=== PATIENT | male | born 1980 | race American Indian/Alaskan Native ===

== ENCOUNTER 2016-12-04 20:06 | Emergency (ER) | payer SELFPAY ==
[2016-12-05] MEDS ORDERED: ROCEPHIN IM ONE (02:39)
[2016-12-05] MEDS ORDERED: XYLOCAINE 1% MPF 5 mL INFILTRATI ONE (02:39)
[2016-12-05] MEDS ORDERED: ZITHROMAX PO ONE (02:39)
--- NOTE | 2016-12-05 02:45 | Emergency Department Report ---
ED General Adult HPI - General Chief complaint: Skin Rash Stated complaint: RASH IN GROIN Time Seen by Provider: 12/05/16 02:13 Source: patient Mode of arrival: Ambulatory Limitations: No Limitations - History of Present Illness Initial comments: 36-year-old male with no significant past medical history presents to the hospital complaining of bumps to the head of his penis and mild irritation urination. Patient had unprotected sex 3 days ago. Denies fever or testicular pain Severity scale (0 -10): 0 - Related Data Allergies Allergy/AdvReac Type Severity Reaction Status Date / Time No Known Allergies Allergy Unverified 12/04/16 20:16 ED Review of Systems ROS: Stated complaint: RASH IN GROIN Other details as noted in HPI Comment: All other systems reviewed and negative Other: Constitutional: No fevers chills Eyes: No eye pain visual changes ENT: No ear pain or throat pain Neck: Denies pain Respiratory: Denies cough wheezing shortness of breath Cardiovascular: Denies chest pain, palpitations, syncope GI: Denies abdominal pain, nausea, vomiting, diarrhea : as per hpi Musculoskeletal: Denies back pain Skin: Denies rash, lesions, erythema Neurologic: Denies headache, numbness, weakness Psychiatric: Denies suicidal ideation, hallucinations ED Past Medical Hx - Past Medical History Previous Medical History?: No - Surgical History Past Surgical History?: No - Social History Smoking Status: Current Every Day Smoker Substance Use Type: None ED Physical Exam - General Limitations: No Limitations - Other Other exam information: General: No limitations, patient is alert in no acute distress Head exam: Atraumatic, normocephalic Eyes exam: Normal appearance ENT: Moist mucous membrane, normal oropharynx Neck exam: Normal inspection, full range of motion, no meningismus nontender Respiratory exam: Clear to auscultation bilateral, no wheezes, rales, crackles Cardiovascular: Normal rate and rhythm, normal heart sounds Abdomen: Soft, nondistended, and nontender, with normal bowel sounds, no rebound, or guarding : Circumcised, 1 small bump to the dimas of the glans penis on the left. No ulceration Or tenderness. No penile discharge. No testicular or epididymal tenderness. Back: Normal Inspection, full range of motion, no tenderness Neurologic: Alert, oriented x3, cranial nerves intact, no motor or sensory deficit Psychiatric: normal affect, normal mood Skin: Warm, dry, intact ED Course Vital Signs 12/04/16 12/05/16 20:11 01:37 Temperature 98.3 F 98.1 F Pulse Rate 81 65 Respiratory 18 17 Rate Blood Pressure 136/71 129/86 O2 Sat by Pulse 99 98 Oximetry ED Medical Decision Making - Medical Decision Making Patient has 1 small bump to his penis that doesn't look like an infection. The lesions not consistent with genital warts, herpes, syphilis, ulcer, or cellulitis. Patient was treated empirically for STD since gonorrhea and chlamydia test will be pending. Follow with PMD/urology/health department will be encouraged. - Differential Diagnosis STD, pearly papules, UTI Critical Care Time: No Critical care attestation.: If time is entered above; I have spent that time in minutes in the direct care of this critically ill patient, excluding procedure time. ED Disposition Clinical Impression: Unprotected sex Disposition: - TO HOME OR SELFCARE Is pt being admited?: No Does the pt Need Aspirin: No Condition: Stable Instructions: Sexually Transmitted Diseases (ED) Additional Instructions: You were treated in the ER today for gonorrhea and chlamydia since cultures are pending. Follow-up with the primary care doctor or clinic and/or urologist provided.Your gonorrhea and chlamydia tests are pending and take approximately 3 -4 days result. You may obtain results in medical records with a photo ID. You may also obtain results through the follow-up doctor office via medical record request. Referrals: [facility] [Outside] - 3-5 Days (health department) ROZ SIDDIQI MD [Staff Physician] - 3-5 Days (Urologist) [facility] [Provider Group] - 3-5 Days Time of Disposition: 04:00
[2016-12-05 02:52] LABS: Bilirubin,Urine NEG (Negative); Blood,Urine NEG (Negative); Ketones,Urine NEG (Negative); Leukocyte Esterase,Urine NEG (Negative); Nitrite,Urine NEG (Negative); Protein,Urine <15 mg/dL mg/dL (Negative); Urobilinogen,Urine < 2.0 mg/dL (<2.0); WBC,Urine < 1.0 /HPF (0.0-6.0)
[2016-12-05 04:50] VITALS: BP 107/58
== END 2016-12-05 04:50 | disposition home or self-care (01) ==
LOC: ED 20:06
DX: N50.9 Disorder of male genital organs, unspecified (principal); R21 Rash and other nonspecific skin eruption
CPT/HCPCS: 81001; 87591; 96372; 99283; J0696

== ENCOUNTER 2017-05-26 16:49 | Emergency (ER) | payer SELFPAY ==
[2017-05-26 18:00] LABS: Bacteria,Urine 1+ /HPF (Negative); Bilirubin,Urine NEG (Negative); Blood,Urine NEG (Negative); Color,Urine Yellow (Yellow); Protein,Urine <15 mg/dL mg/dL (Negative); Urobilinogen,Urine < 2.0 mg/dL (<2.0)
--- NOTE | 2017-05-26 20:44 | Emergency Department Report ---
ED Male HPI - General Chief complaint: Urogenital-Male Stated complaint: genital burning Time Seen by Provider: 05/26/17 20:36 Source: patient Mode of arrival: Ambulatory Limitations: No Limitations - History of Present Illness Initial comments: This is a 37-year-old male nontoxic, well nourished in appearance, no acute signs of distress presents to the ED with c/o of penile discharge 1 day. Patient stated he is concerned STD and would like to be treated empirically. Patient stated that he had sexual activity 1 week ago unprotected identifying a piece of this. Patient also stated that there is slight burning sensation with urination. Patient denies any testicular pain, swelling, numbness, tingling, fever, chills, nausea, vomiting headache or stiff neck. Patient denies any back pain. Denies any hematuria, polyuria. Patient denies any allergies or significant past medical history. MD Complaint: penile discharge, dysuria -: days(s) (1) Location: penis Radiation: none Severity: mild Severity scale (0 -10): 3 Quality: burning Consistency: constant Improves with: none Worsens with: urination discharge. denies: swelling, mass, rash, urinary retention, blood in urine, dysuria, fever, nausea/vomiting, incontinence - Related Data Allergies Allergy/AdvReac Type Severity Reaction Status Date / Time No Known Allergies Allergy Verified 05/26/17 17:09 ED Review of Systems ROS: Stated complaint: genital burning Other details as noted in HPI Constitutional: denies: chills, fever Eyes: denies: eye pain, eye discharge, vision change ENT: denies: ear pain, throat pain Respiratory: denies: cough, shortness of breath, wheezing Cardiovascular: denies: chest pain, palpitations Endocrine: no symptoms reported Gastrointestinal: denies: abdominal pain, nausea, diarrhea Genitourinary: dysuria, discharge. denies: urgency Musculoskeletal: denies: back pain, joint swelling, arthralgia Skin: denies: rash, lesions Neurological: denies: headache, weakness, paresthesias Psychiatric: denies: anxiety, depression Hematological/Lymphatic: denies: easy bleeding, easy bruising ED Past Medical Hx - Past Medical History Previous Medical History?: No - Surgical History Past Surgical History?: No - Social History Smoking Status: Never Smoker ED Physical Exam - General Limitations: No Limitations General appearance: alert, in no apparent distress - Head Head exam: Present: atraumatic, normocephalic - Eye Eye exam: Present: normal appearance Pupils: Present: normal accommodation - ENT ENT exam: Present: normal exam, mucous membranes moist - Neck Neck exam: Present: normal inspection, full ROM - Respiratory Respiratory exam: Present: normal lung sounds bilaterally. Absent: respiratory distress, wheezes, rales, rhonchi, stridor - Cardiovascular Cardiovascular Exam: Present: regular rate, normal rhythm, normal heart sounds. Absent: systolic murmur, diastolic murmur, rubs, gallop - GI/Abdominal GI/Abdominal exam: Present: soft, normal bowel sounds. Absent: distended, tenderness, guarding, rebound, rigid, diminished bowel sounds - Rectal Rectal exam: Present: deferred - Extremities Exam Extremities exam: Present: normal inspection, full ROM - Back Exam Back exam: Present: normal inspection, full ROM - Neurological Exam Neurological exam: Present: alert, oriented X3, normal gait - Psychiatric Psychiatric exam: Present: normal affect, normal mood - Skin Skin exam: Present: warm, dry, intact, normal color. Absent: rash ED Course Vital Signs 05/26/17 17:04 Temperature 98.6 F Pulse Rate 99 H Respiratory 75 H Rate Blood Pressure 139/87 O2 Sat by Pulse 99 Oximetry - Reevaluation(s) Reevaluation #1: 05/26/17 20:46 Patient is speaking in full sentences with no signs of distress noted. - Consultations Consultation #1: 05/26/17 20:50 Patient has been consulted with Dr. Darnell about patient history, physical exam, and vitals signs and examined and screened patient and agrees to ED plan of care and discharge plan of care. ED Medical Decision Making - Medical Decision Making This is a 37-year-old male that presents with possible STD. Patient is stable and was examined by me. Patient was spoken with Dr. Darnell and stated due to symptoms and no UTI and negative UA this is a nonmedical emergency and patient was referred to follow up with [facility] and has been referred to follow-up with [facility]. There is no any other symptoms as per patient. Patient is stable. Vital signs are stable. At time of discharge, the patient does not seem toxic or ill in appearance. No acute signs of distress noted. Patient agrees to discharge treatment plan of care. No further questions noted by the patient. Critical care attestation.: If time is entered above; I have spent that time in minutes in the direct care of this critically ill patient, excluding procedure time. ED Disposition Clinical Impression: Possible exposure to STD Disposition: DC-01 TO HOME OR SELFCARE Is pt being admited?: No Does the pt Need Aspirin: No Condition: Stable Instructions: Sexually Transmitted Diseases (ED), Safe Sex (ED) Additional Instructions: Follow-up with a primary care doctor, [facility], [facility] in 3-5 days or if symptoms worsen and continue return to emergency room as soon as possible. Referrals: DERRICK CASTILLO MD [Primary Care Provider] - 3-5 Days [facility] [Referring] - 3-5 Days [facility] [Outside] - 3-5 Days [facility] [Outside] - 3-5 Days Forms: Work/School Release Form(ED)
[2017-05-26 20:47] VITALS: BP 124/73
== END 2017-05-26 21:26 | disposition home or self-care (01) ==
LOC: ED 16:49
DX: Z20.2 Contact with and (suspected) exposure to infections with a predominantly sexual mode of transmission (principal)
CPT/HCPCS: 81001; 87086; 99283

== ENCOUNTER 2018-05-16 19:33 | Emergency (ER) | payer OTHER ==
[2018-05-16 21:29] VITALS: BP 119/72
--- NOTE | 2018-05-16 21:31 | Emergency Department Report ---
Chief Complaint: Headache Stated Complaint: MIGRAINE Time Seen by Provider: 05/16/18 21:26 - HPI History of Present Illness: This is a 38 y.o. male that presents to the ED with a headache. Patients states he was prescribed fioricet by a clinic last week. He had a toothache last week and headache every since. Patient states he just took 2 fioricet tablets while in waiting room. - ROS Review of Systems: right temporal - Exam Vital Signs: Vital Signs 05/16/18 21:28 Temperature 97.7 F Pulse Rate 69 Respiratory 18 Rate Blood Pressure 119/72 O2 Sat by Pulse 99 Oximetry MSE screening note: Focused history and physical exam performed. Due to findings the following was ordered: CT of head Given toradaol and zofran ED Disposition for MSE Condition: Stable
[2018-05-16] MEDS ORDERED: TORADOL IM ONE (21:33)
[2018-05-16] MEDS ORDERED: ZOFRAN ODT PO ONE (21:33)
[2018-05-16] MEDS ORDERED: ZOFRAN ODT ONE (21:36)
[2018-05-16] MEDS ORDERED: TORADOL ONE (21:36)
--- NOTE | 2018-05-16 22:30 | Cat Scan Report ---
PROCEDURE: CT HEAD/BRAIN WO CON TECHNIQUE: Spiral imaging of the brain was obtained without the use of IV contrast material. HISTORY: headache COMPARISONS: None FINDINGS: Brain: Brain density appears normal. No evidence of intracranial hemorrhage. No parenchymal hemorr oscar, mass lesions or mass effect are seen. No abnormal extra-axial fluid collects or masses are see n. Ventricles: Ventricles are normal size and are midline. Bone Windows: No evidence of skull fracture. Paranasal sinuses: Visualized portions appear clear.. Mastoid air cells: Clear. IMPRESSION: Negative exam. This document is electronically signed by Jesús Scales MD., May 16 2018 10:28:30 PM ET
== END 2018-05-16 21:45 | disposition home or self-care (01) ==
LOC: ED 19:33
DX: G43.909 Migraine, unspecified, not intractable, without status migrainosus (principal); Z53.21 Procedure and treatment not carried out due to patient leaving prior to being seen by health care provider
CPT/HCPCS: 70450; J1885; 96372; Q0162

== ENCOUNTER 2018-05-24 22:07 | Emergency (ER) | payer OTHER ==
[2018-05-24] MEDS ORDERED: TYLENOL PO ONE (22:47)
[2018-05-24] MEDS ORDERED: TYLENOL ONE (22:51)
[2018-05-25 03:43] VITALS: BP 111/50
[2018-05-25] MEDS ORDERED: BENADRYL PO ONE (04:53)
[2018-05-25] MEDS ORDERED: DECADRON IM ONE (04:53)
[2018-05-25] MEDS ORDERED: REGLAN PO ONE (04:53)
[2018-05-25] MEDS ORDERED: ULTRAM PO ONE (04:53)
--- NOTE | 2018-05-25 04:57 | Emergency Department Report ---
ED Headache HPI - General Chief Complaint: Headache Stated Complaint: HEAD PAIN Time Seen by Provider: 05/25/18 04:51 - History of Present Illness Initial Comments: Patient 38-year-old male with a history of migraine headaches who presents for headache to the right frontal lobe Same intensity same location as usual headaches patient states this is exacerbation started 2 weeks ago intermittently patient was treated on the had a CT scan at that time which was normal however has not shows any headache medication has not followed up with neurology there are no fevers no chills no visual changes no dizziness no lightheadedness no nausea vomiting no photophobia pain is 7/10 sharp Timing/Duration: 1 week Quality: moderate Head Injury Location: frontal Recent Head Trauma: chronic headaches Associated Symptoms: denies symptoms Allergies/Adverse Reactions: Allergies No Known Allergies Allergy (Verified 05/26/17 17:09) Home Medications: Ambulatory Orders Acetaminophen [Tylenol Extra Strength] 1,000 mg PO QID PRN #60 tablet 05/25/18 Metoclopramide [Reglan] 10 mg PO Q6H PRN #30 tablet 05/25/18 diphenhydrAMINE [Benadryl CAP] 25 mg PO Q6HR PRN #30 capsule 05/25/18 ED Review of Systems ROS: Stated complaint: HEAD PAIN Other details as noted in HPI Constitutional: denies: chills, fever Eyes: denies: eye pain, eye discharge, vision change ENT: denies: ear pain, throat pain Respiratory: denies: cough, shortness of breath, wheezing Cardiovascular: denies: chest pain, palpitations Endocrine: no symptoms reported Gastrointestinal: denies: abdominal pain, nausea, diarrhea Genitourinary: denies: urgency, dysuria Musculoskeletal: denies: back pain, joint swelling, arthralgia Skin: denies: rash, lesions Neurological: headache. denies: weakness, paresthesias Psychiatric: denies: anxiety, depression Hematological/Lymphatic: denies: easy bleeding, easy bruising ED Past Medical Hx - Past Medical History Previous Medical History?: Yes Hx Headaches / Migraines: Yes - Surgical History Past Surgical History?: No - Social History Smoking Status: Current Every Day Smoker Substance Use Type: None - Medications Home Medications: Home Medications Medication Instructions Recorded Confirmed Last Taken Type Acetaminophen [Tylenol Extra 1,000 mg PO QID PRN #60 tablet 05/25/18 Unknown Rx Strength] Metoclopramide [Reglan] 10 mg PO Q6H PRN #30 tablet 05/25/18 Unknown Rx diphenhydrAMINE [Benadryl CAP] 25 mg PO Q6HR PRN #30 capsule 05/25/18 Unknown Rx ED Physical Exam - General Limitations: No Limitations General appearance: alert, in no apparent distress - Head Head exam: Present: atraumatic, normocephalic, normal inspection - Eye Eye exam: Present: normal appearance, PERRL, EOMI. Absent: conjunctival injection Pupils: Present: normal accommodation - ENT ENT exam: Present: normal orophraynx, mucous membranes moist, TM's normal bilaterally, normal external ear exam - Expanded ENT Exam Expanded Ear exam: Present: normal external inspection Mouth exam: Absent: trismus Teeth exam: Present: normal inspection Throat exam: Positive: normal inspection, other (uvula midline no sfider ) - Neck Neck exam: Present: normal inspection, full ROM. Absent: tenderness, meningismus, lymphadenopathy, thyromegaly - Respiratory Respiratory exam: Present: normal lung sounds bilaterally. Absent: respiratory distress, wheezes, stridor, chest wall tenderness - Cardiovascular Cardiovascular Exam: Present: regular rate, normal rhythm, normal heart sounds. Absent: systolic murmur, diastolic murmur, rubs, gallop - GI/Abdominal GI/Abdominal exam: Present: soft, normal bowel sounds. Absent: mass, bruit, hernia - Rectal Rectal exam: Present: deferred, normal inspection - Extremities Exam Extremities exam: Present: normal inspection - Back Exam Back exam: Present: normal inspection, full ROM, tenderness, muscle spasm. Absent: CVA tenderness (R), CVA tenderness (L), paraspinal tenderness, vertebral tenderness, rash noted - Neurological Exam Neurological exam: Present: alert, oriented X3, CN II-XII intact, normal gait, reflexes normal - Psychiatric Psychiatric exam: Present: normal affect, normal mood - Skin Skin exam: Present: warm, dry, intact, normal color. Absent: rash ED Course Vital Signs 05/24/18 05/24/18 05/24/18 22:20 22:43 22:49 Temperature 97.9 F 97.9 F Pulse Rate 83 85 Respiratory 18 16 16 Rate Blood Pressure 117/64 117/64 O2 Sat by Pulse 97 98 Oximetry 05/25/18 03:40 Temperature 97.6 F Pulse Rate 54 L Respiratory 20 Rate Blood Pressure 111/50 O2 Sat by Pulse 99 Oximetry ED Medical Decision Making - Medical Decision Making headache resolve pt state he is read to go , will dc to home with rx for tylenol, reglan, benadryl for headache follow up with [facility] Critical care attestation.: If time is entered above; I have spent that time in minutes in the direct care of this critically ill patient, excluding procedure time. ED Disposition Clinical Impression: Acute nonintractable headache Qualifiers: Headache type: unspecified Qualified Code(s): R51 - Headache Disposition: DC-01 TO HOME OR SELFCARE Is pt being admited?: No Does the pt Need Aspirin: No Condition: Stable Instructions: Acute Headache (ED) Prescriptions: diphenhydrAMINE [Benadryl CAP] 25 mg PO Q6HR PRN #30 capsule PRN Reason: Headache Metoclopramide [Reglan] 10 mg PO Q6H PRN #30 tablet PRN Reason: Headache Acetaminophen [Tylenol Extra Strength] 1,000 mg PO QID PRN #60 tablet PRN Reason: headache Referrals: OMAIRA BORJA MD [Staff Physician] - 3-5 Days [facility] [Outside] - 3-5 Days Forms: Work/School Release Form(ED) Time of Disposition: 05:53
== END 2018-05-25 06:33 | disposition home or self-care (01) ==
LOC: ED 22:07
DX: G43.909 Migraine, unspecified, not intractable, without status migrainosus (principal); F17.200 Nicotine dependence, unspecified, uncomplicated
CPT/HCPCS: 96372

== ENCOUNTER 2018-10-24 19:19 | Emergency (ER) | payer OTHER ==
[2018-10-24 20:02] VITALS: BP 115/72
--- NOTE | 2018-10-24 20:03 | Event Note ---
ED Screening Note Date of service: 10/24/18 Time: 20:01 ED Screening Note: 38 y o ,brandon with a hx of migraine presents to ed cc of worsening migraine since his father just passed This initial assessment/diagnostic orders/clinical plan/treatment(s) is/are subject to change based on patients health status, clinical progression and re- assessment by fellow clinical providers in the ED. Further treatment and workup at subsequent clinical providers discretion. Patient/guardian urged not to elope from the ED as their condition may be serious if not clinically assessed and managed. Initial orders include:
[2018-10-24] MEDS ORDERED: DELTASONE PO ONE (21:09)
[2018-10-24] MEDS ORDERED: TORADOL IM ONE (21:09)
--- NOTE | 2018-10-24 21:10 | Emergency Department Report ---
ED Back Pain/Injury HPI - General Chief Complaint: Headache Stated Complaint: HEAD PROBLEMS Time Seen by Provider: 10/24/18 20:01 Source: patient Limitations: No Limitations - History of Present Illness Initial Comments: 38 YO MALE WHO COMES TO ER WITH A/C [place]. CT SCAN IN APRIL 30. NO N/V/D. NO FEVER/CHILLS. HAS SEEN PCP AND HAS A REFERRAL TO NEURO AND HE IS WAITING FOR A NEURO APPNT. - Related Data Previous Rx's Medication Instructions Recorded Last Taken Type Ibuprofen [Motrin] 800 mg PO Q8HR PRN #30 tablet 10/24/18 Unknown Rx Allergies Allergy/AdvReac Type Severity Reaction Status Date / Time No Known Allergies Allergy Verified 05/26/17 17:09 ED Review of Systems ROS: Stated complaint: HEAD PROBLEMS Other details as noted in HPI Comment: All other systems reviewed and negative ED Past Medical Hx - Past Medical History MIGRAINES ED Back Pain Physical Exam - Exam General: Vital signs noted. No distress. Alert and acting appropriately. Back/Abdomen: No Abdominal Tenderness, No Perithoracic Tenderness, No Perilumbar Tenderness, No Sacroiliac Tenderness, No Flank Tenderness, No Straight Leg Raise Pain Neuro: Yes Normal Sensation, Yes Normal DTR's, Yes Normal Gait, No Motor Weakness ED Course Vital Signs 10/24/18 20:00 Temperature 98.5 F Pulse Rate 98 H Respiratory 18 Rate Blood Pressure 115/72 O2 Sat by Pulse 97 Oximetry ED Medical Decision Making - Medical Decision Making NEURO INTACT NO FOCAL DEFICIT NO N/V REQUESTING MOTRIN RX AND WORK NOTE Vital Signs 10/24/18 20:00 Temperature 98.5 F Pulse Rate 98 H Respiratory 18 Rate Blood Pressure 115/72 O2 Sat by Pulse 97 Oximetry - Differential Diagnosis A/C MIGRAINE Critical care attestation.: If time is entered above; I have spent that time in minutes in the direct care of this critically ill patient, excluding procedure time. ED Disposition Clinical Impression: Migraine Disposition: DC-01 TO HOME OR SELFCARE Is pt being admited?: No Does the pt Need Aspirin: No Condition: Stable Instructions: Migraine Headache (ED) Additional Instructions: HYDRATE WELL WITH WATER MED ORDERED TODAY FOLLOW UP WITH PCP/NEURO INSTRUCTED REFERRALS BELOW Prescriptions: Ibuprofen [Motrin] 800 mg PO Q8HR PRN #30 tablet PRN Reason: Pain , Severe (7-10) Referrals: FREDRICK ROCHA MD [Staff Physician] - 3-5 Days ANGEL WILHELM MD [Referring] - 3-5 Days Forms: Work/School Release Form(ED) Time of Disposition: 21:32
== END 2018-10-24 22:20 | disposition home or self-care (01) ==
LOC: ED 19:19
DX: G43.909 Migraine, unspecified, not intractable, without status migrainosus (principal)
CPT/HCPCS: 96372; 99282; J1885; J7512

== ENCOUNTER 2018-11-27 23:54 | Emergency (ER) | payer OTHER ==
[2018-11-28 00:02] VITALS: BP 132/76
--- NOTE | 2018-11-28 02:11 | Emergency Department Report ---
ED General Adult HPI - General Chief complaint: Extremity Injury, Lower Stated complaint: LEGS CRAMPS Time Seen by Provider: 11/28/18 01:31 Source: patient Mode of arrival: Ambulatory Limitations: No Limitations - History of Present Illness Initial comments: 38-year-old French male, employee of the [employer] utilizing no standing for this which what he calls for suspension presented much department complaining increased muscle cramps, aches and pains. States he's been trying to hydrate, but feels that due to the equipment causing his legs cramp. Reports no numbness or tingling. No chest pain, palpitations. No notable swollen. No shortness of breath. He was to the sweats. He denies any trauma. Pain is dull, throbbing and and an aching when present. He's been taking some [id number]-hez-nslcugt medications with no M improvement. Radiation: non-radiation Quality: dull Consistency: constant Improves with: none Worsens with: none Associated Symptoms: denies: chest pain, cough, diaphoresis, fever/chills, loss of appetite, nausea/vomiting, shortness of breath, syncope, weakness - Related Data Previous Rx's Medication Instructions Recorded Last Taken Type Ibuprofen [Motrin] 800 mg PO Q8HR PRN #30 tablet 10/24/18 Unknown Rx Prochlorperazine [Compazine] 10 mg PO Q8HR #20 tablet 10/29/18 Unknown Rx methOCARBAMOL [Robaxin] 750 mg PO Q8H PRN #21 tablet 11/28/18 Unknown Rx Allergies Allergy/AdvReac Type Severity Reaction Status Date / Time No Known Allergies Allergy Verified 05/26/17 17:09 ED Review of Systems ROS: Stated complaint: LEGS CRAMPS Other details as noted in HPI Comment: All other systems reviewed and negative ED Past Medical Hx - Past Medical History Previous Medical History?: Yes Hx Headaches / Migraines: Yes Additional medical history: MIGRAINES - Surgical History Past Surgical History?: No - Social History Smoking Status: Current Every Day Smoker Substance Use Type: None - Medications Home Medications: Home Medications Medication Instructions Recorded Confirmed Last Taken Type Ibuprofen [Motrin] 800 mg PO Q8HR PRN #30 tablet 10/24/18 Unknown Rx Prochlorperazine [Compazine] 10 mg PO Q8HR #20 tablet 10/29/18 Unknown Rx methOCARBAMOL [Robaxin] 750 mg PO Q8H PRN #21 tablet 11/28/18 Unknown Rx ED Physical Exam - General Limitations: No Limitations General appearance: alert, in no apparent distress - Head Head exam: Present: atraumatic, normocephalic - Eye Eye exam: Present: normal appearance - ENT ENT exam: Present: mucous membranes moist - Neck Neck exam: Present: normal inspection - Respiratory Respiratory exam: Present: normal lung sounds bilaterally. Absent: respiratory distress - Cardiovascular Cardiovascular Exam: Present: regular rate, normal rhythm. Absent: systolic murmur, diastolic murmur, rubs, gallop - GI/Abdominal GI/Abdominal exam: Present: soft, normal bowel sounds - Rectal Rectal exam: Present: deferred - Extremities Exam Extremities exam: Present: normal inspection - Back Exam Back exam: Present: normal inspection - Neurological Exam Neurological exam: Present: alert, oriented X3 - Psychiatric Psychiatric exam: Present: normal affect, normal mood - Skin Skin exam: Present: warm, dry, intact, normal color. 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 Offered to draw his labs to evaluate his electrolytes, however, he implied that he was simply hydrate and take multivitamins's Critical care attestation.: If time is entered above; I have spent that time in minutes in the direct care of this critically ill patient, excluding procedure time. ED Disposition Clinical Impression: Muscle cramping Disposition: DC-01 TO HOME OR SELFCARE Is pt being admited?: No Does the pt Need Aspirin: No Condition: Stable Instructions: Muscle Spasm (ED) Prescriptions: methOCARBAMOL [Robaxin] 750 mg PO Q8H PRN #21 tablet PRN Reason: Spasms Referrals: [facility] [Provider Group] - 3-5 Days Forms: Work/School Release Form
== END 2018-11-28 03:14 | disposition home or self-care (01) ==
LOC: ED 23:54
DX: R25.2 Cramp and spasm (principal); G43.909 Migraine, unspecified, not intractable, without status migrainosus; F17.200 Nicotine dependence, unspecified, uncomplicated; Z79.899 Other long term (current) drug therapy
CPT/HCPCS: 99282

== ENCOUNTER 2019-03-19 20:40 | Emergency (ER) | payer OTHER ==
[2019-03-19 20:58] VITALS: BP 126/76
--- NOTE | 2019-03-20 00:39 | XRay Report ---
ABDOMEN 4 VIEW(S) INDICATION / CLINICAL INFORMATION: n/v/cough. COMPARISON: None available. FINDINGS: TUBES / LINES: None. BOWEL GAS PATTERN: No significant abnormality. FREE AIR / EXTRALUMINAL GAS: None seen. ADDITIONAL FINDINGS: No significant pulmonary or pleural abnormality. IMPRESSION: 1. No significant abnormality. Signer Name: Shahram Mckinney MD Signed: 03/20/2019 12:35 AM Workstation Name: [id number]
[2019-03-20] MEDS ORDERED: IBUPROFEN 800 MG TAB PO ONE (01:20)
[2019-03-20] MEDS ORDERED: ONDANSETRON 4 MG ODT TAB PO ONE (01:20)
[2019-03-20] MEDS ORDERED: BENZONATATE 100 MG CAP PO ONE (01:20)
[2019-03-20 01:43] LABS: Basophils # (Auto) 0.1 K/mm3 (0.0-0.1); Basophils % (Auto) 0.7 % (0.0-1.8); Eosinophils # (Auto) 0.9 K/mm3 (0.0-0.4); Eosinophils % (Auto) 6.9 % (0.0-4.3); Hematocrit 51.2 % (35.5-45.6); Lymphocytes # (Auto) 3.2 K/mm3 (1.2-5.4); Lymphocytes % (Auto) 23.9 % (13.4-35.0); Mean Corpuscular HGB Conc 33 % (32-34); Mean Corpuscular Volume 91 fl (84-94); Monocytes # (Auto) 0.8 K/mm3 (0.0-0.8); Platelet Count 396 K/mm3 (140-440); Red Blood Count 5.61 M/mm3 (3.65-5.03); Red Cell Distribution Width 14.9 % (13.2-15.2)
--- NOTE | 2019-03-20 02:02 | Emergency Department Report ---
- General Chief Complaint: Nausea/Vomiting/Diarrhea Stated Complaint: FLU Time Seen by Provider: 03/20/19 00:03 Source: patient Mode of arrival: Ambulatory Limitations: No Limitations - History of Present Illness Initial Comments: This is a 38-year-old male nontoxic, well nourished in appearance, no acute signs of distress presents to the ED with c/o of productive cough, subjective fever, chills, body aches, rhinorrhea, nasal congestion, and nausea and vomiting x1 week. Stated vomiting has been 2 episodes today and was food content. Denies any abdominal pain, back pain, or flank pain. Patient describes productive cough as yellow mucus production. Patient denies any sick contact. She also has a secondary complaint of bilateral redness and itching to groin area. Patient denies any recent travels, long car, recent hospital stays. Patient denies any calf pain or calf tenderness. Patient denies any chest pain, short of breath, hemoptysis, numbness, tingling, headache or stiff neck. Patient denies any allergies to significant past medical history. MD Complaint: cough, rhinorrhea, nasal congestion, other (n/v) -: week(s) (1) Severity: mild Severity scale (0 -10): 8 Quality: aching Consistency: constant Improves With: nothing Worsens With: nothing Associated Symptoms: fever, chills, rhinorrhea, nasal congestion, cough, nausea, vomiting. denies: myalgias, diaphoresis, headache, sore throat, stiff neck, chest pain, shortness of breath, abdominal pain, diarrhea, dysuria, rash, confusion, right sweats, weight loss, epistaxis, hoarseness, ear pain Treatments Prior to Arrival: none - Related Data Previous Rx's Medication Instructions Recorded Last Taken Type Ibuprofen [Motrin] 800 mg PO Q8HR PRN #30 tablet 10/24/18 Unknown Rx Prochlorperazine [Compazine] 10 mg PO Q8HR #20 tablet 10/29/18 Unknown Rx methOCARBAMOL [Robaxin] 750 mg PO Q8H PRN #21 tablet 11/28/18 Unknown Rx Benzonatate [Tessalon Perles] 100 mg PO Q8HR PRN #20 capsule 03/20/19 Unknown Rx Clotrimazole [Antifungal] 28 gm TP DAILY #1 cream..g. 03/20/19 Unknown Rx Ibuprofen [Motrin] 600 mg PO Q8H PRN #20 tablet 03/20/19 Unknown Rx Ondansetron [Zofran Odt] 4 mg PO Q8HR PRN #20 tab.rapdis 03/20/19 Unknown Rx Allergies Allergy/AdvReac Type Severity Reaction Status Date / Time No Known Allergies Allergy Verified 05/26/17 17:09 ED Review of Systems ROS: Stated complaint: FLU Other details as noted in HPI Constitutional: denies: chills, fever Eyes: denies: eye pain, eye discharge, vision change ENT: congestion. denies: ear pain, throat pain Respiratory: cough. denies: shortness of breath, wheezing Cardiovascular: denies: chest pain, palpitations Endocrine: no symptoms reported Gastrointestinal: nausea, vomiting. denies: abdominal pain, diarrhea Genitourinary: denies: urgency, dysuria Musculoskeletal: denies: back pain, joint swelling, arthralgia Skin: denies: rash, lesions Neurological: denies: headache, weakness, paresthesias Psychiatric: denies: anxiety, depression Hematological/Lymphatic: denies: easy bleeding, easy bruising ED Past Medical Hx - Past Medical History Hx Headaches / Migraines: Yes Additional medical history: MIGRAINES - Social History Smoking Status: Current Every Day Smoker Substance Use Type: None - Medications Home Medications: Home Medications Medication Instructions Recorded Confirmed Last Taken Type Ibuprofen [Motrin] 800 mg PO Q8HR PRN #30 tablet 10/24/18 Unknown Rx Prochlorperazine [Compazine] 10 mg PO Q8HR #20 tablet 10/29/18 Unknown Rx methOCARBAMOL [Robaxin] 750 mg PO Q8H PRN #21 tablet 11/28/18 Unknown Rx Benzonatate [Tessalon Perles] 100 mg PO Q8HR PRN #20 capsule 03/20/19 Unknown Rx Clotrimazole [Antifungal] 28 gm TP DAILY #1 cream..g. 03/20/19 Unknown Rx Ibuprofen [Motrin] 600 mg PO Q8H PRN #20 tablet 03/20/19 Unknown Rx Ondansetron [Zofran Odt] 4 mg PO Q8HR PRN #20 tab.rapdis 03/20/19 Unknown Rx ED Physical Exam - General Limitations: No Limitations General appearance: alert, in no apparent distress - Head Head exam: Present: atraumatic, normocephalic - Eye Eye exam: Present: normal appearance - ENT ENT exam: Present: normal exam, normal orophraynx - Neck Neck exam: Present: normal inspection, full ROM. Absent: tenderness, men ingismus, lymphadenopathy - Respiratory Respiratory exam: Present: normal lung sounds bilaterally. Absent: respiratory distress, wheezes, rales, rhonchi, stridor, chest wall tenderness, accessory muscle use, decreased breath sounds, prolonged expiratory - Cardiovascular Cardiovascular Exam: Present: regular rate, normal rhythm, normal heart sounds. Absent: irregular rhythm, systolic murmur, diastolic murmur, rubs, gallop - GI/Abdominal GI/Abdominal exam: Present: soft, normal bowel sounds. Absent: distended, tenderness, guarding, rebound, rigid, diminished bowel sounds - Extremities Exam Extremities exam: Present: normal inspection, full ROM, normal capillary refill. Absent: tenderness - Back Exam Back exam: Present: normal inspection, full ROM. Absent: tenderness, CVA tenderness (R), CVA tenderness (L), muscle spasm, paraspinal tenderness, vertebral tenderness, rash noted - Neurological Exam Neurological exam: Present: alert, oriented X3, normal gait - Psychiatric Psychiatric exam: Present: normal affect, normal mood - Skin Skin exam: Present: warm, dry, intact, normal color. Absent: rash ED Course Vital Signs 03/19/19 20:57 Temperature 98.7 F Pulse Rate 93 H Respiratory 18 Rate Blood Pressure 126/76 [Right] O2 Sat by Pulse 96 Oximetry - Reevaluation(s) Reevaluation #1: 03/20/19 02:00 Patient is speaking in full sentences with no signs of distress noted. ED Medical Decision Making - Lab Data Result diagrams: 03/20/19 00:29 03/20/19 00:29 - Medical Decision Making This is a 38-year-old male that presents with influenza like symptoms and jock itch. Patient is stable and was examined by me. Chest/abdomnial x-ray has been obtained and dictated by radiologist with normal exam. Patient is notified of x-ray results with no questions noted. here is no abdominal tenderness. Negative signs of symptoms of appendicitis, cholecystitis or acute abdomen. Labs obtained. This was instructed to more supportive care due to symptoms of influenza occurring more than 48 hours. Patient was instructed to increase hydration, rest and take Motrin for fever episodes. Patient received motrin and tesslone perrls in the ED. Vitals stable. Patient is nonfebrile and normal heart rate. Patient received Zofran in the ED which patient stated symptoms has resovled and subsided. A by mouth challenge has been obtained and patient tolerated well with no nausea vomiting. Patient was instructed Follow-up with a primary care doctor in 3-5 days or if symptoms worsen and continue return to emergency room as soon as possible. At time time of discharge, the patient does not seem toxic or ill in appearance. No acute signs of distress noted. Patient agrees to discharge treatment plan of care. No further questions noted by the patient. Critical care attestation.: If time is entered above; I have spent that time in minutes in the direct care of this critically ill patient, excluding procedure time. ED Disposition Clinical Impression: Jock itch, Influenza Disposition: DC-01 TO HOME OR SELFCARE Is pt being admited?: No Does the pt Need Aspirin: No Condition: Stable Instructions: Influenza (ED), Jock Itch (ED) Additional Instructions: Follow-up with a primary care doctor in 3-5 days or if symptoms worsen and continue return to emergency room as soon as possible. Increased rest, hydration, and take Motrin/Tylenol as prescribed for fever episode. Prescriptions: Clotrimazole [Antifungal] 28 gm TP DAILY #1 cream..g. Ibuprofen [Motrin] 600 mg PO Q8H PRN #20 tablet PRN Reason: Pain Benzonatate [Tessalon Perles] 100 mg PO Q8HR PRN #20 capsule PRN Reason: Cough Ondansetron [Zofran Odt] 4 mg PO Q8HR PRN #20 tab.rapdis PRN Reason: Nausea Referrals: PRIMARY MD ONI [Primary Care Provider] - 3-5 Days YOVANY FRIEDMAN MD [Staff Physician] - 3-5 Days [facility] [Outside] - 3-5 Days Forms: Work/School Release Form(ED)
[2019-03-20 02:03] LABS: Alanine Aminotransferase 19 units/L (7-56); Albumin 3.7 g/dL (3.9-5); BUN/Creatinine Ratio 8; Blood Urea Nitrogen 9 mg/dL (9-20); Calcium 9.4 mg/dL (8.4-10.2); Hemolysis Index 37
== END 2019-03-20 02:48 | disposition home or self-care (01) ==
LOC: ED 20:40
DX: J11.1 Influenza due to unidentified influenza virus with other respiratory manifestations (principal); B35.6 Tinea cruris; F17.200 Nicotine dependence, unspecified, uncomplicated; G43.909 Migraine, unspecified, not intractable, without status migrainosus; Z79.899 Other long term (current) drug therapy
CPT/HCPCS: 36415; 74022; 80053; 83690; 85025; Q0162

== ENCOUNTER 2019-03-26 13:42 | Emergency (ER) | payer OTHER ==
--- NOTE | 2019-03-26 14:33 | Emergency Department Report ---
Blank Doc - Documentation Documentation: 38-year-old male that presents with worsening URI symptoms. Was seen last week and was diagnosed with flu but stated symptoms are worsening. This initial assessment/diagnostic orders/clinical plan/treatment(s) is/are subject to change based on patient's health status, clinical progression and re- assessment by fellow clinical providers in the ED. Further treatment and workup at subsequent clinical providers discretion. Patient/guardians urged not to elope from the ED as their condition may be serious if not clinically assessed and managed. Initial orders include: 1- Patient sent to [facility] for further evaluation and treatment 2- CXR
--- NOTE | 2019-03-26 18:22 | XRay Report ---
CHEST 2 VIEWS INDICATION / CLINICAL INFORMATION: cough. COMPARISON: 03/20/2019 FINDINGS: SUPPORT DEVICES: None. HEART / MEDIASTINUM: No significant abnormality. LUNGS / PLEURA: No significant pulmonary or pleural abnormality. No pneumothorax. ADDITIONAL FINDINGS: No significant additional findings. IMPRESSION: No significant abnormality or change from 03/20/2019 Signer Name: Adriel Lopes MD FACR Signed: 03/26/2019 6:18 PM Workstation Name: [id number]
--- NOTE | 2019-03-26 18:49 | Emergency Department Report ---
- General Chief Complaint: Upper Respiratory Infection Stated Complaint: SPITTING UP BLOOD/HAS FLU Time Seen by Provider: 03/26/19 14:32 Source: patient Mode of arrival: Ambulatory Limitations: No Limitations - History of Present Illness Initial Comments: Mr. Brown is a 38-year-old male that presents with worsening URI symptoms. Was seen last week and was diagnosed with flu but stated symptoms are worsening. ststes noc fever, productive cough yellow green blood tinged, states some noc wheezing. pt denies sob , or cp. no fever noted at this time. there is no resp distress. MD Complaint: cough, sore throat, rhinorrhea, nasal congestion, sinus pain Onset/Timin -: week(s) Severity: moderate Severity scale (0 -10): 4 Quality: aching Consistency: intermittent Improves With: nothing Worsens With: activity Context: sick contacts Associated Symptoms: fever, chills, rhinorrhea, nasal congestion, sore throat, cough, ear pain. denies: chest pain, shortness of breath, nausea, vomiting, diarrhea, dysuria, rash, right sweats Treatments Prior to Arrival: none - Related Data Previous Rx's Medication Instructions Recorded Last Taken Type Ibuprofen [Motrin] 800 mg PO Q8HR PRN #30 tablet 10/24/18 Unknown Rx Prochlorperazine [Compazine] 10 mg PO Q8HR #20 tablet 10/29/18 Unknown Rx methOCARBAMOL [Robaxin] 750 mg PO Q8H PRN #21 tablet 11/28/18 Unknown Rx Benzonatate [Tessalon Perles] 100 mg PO Q8HR PRN #20 capsule 03/20/19 Unknown Rx Clotrimazole [Antifungal] 28 gm TP DAILY #1 cream..g. 03/20/19 Unknown Rx Ibuprofen [Motrin] 600 mg PO Q8H PRN #20 tablet 03/20/19 Unknown Rx Ondansetron [Zofran Odt] 4 mg PO Q8HR PRN #20 tab.rapdis 03/20/19 Unknown Rx Albuterol INH(or & Nicu Only) 2 puff IH QID PRN #8.5 gram 03/26/19 Unknown Rx [ProAir HFA Inhaler] Azithromycin [Zithromax Z-NAOMY] 250 mg PO DAILY #6 tab 03/26/19 Unknown Rx Benzonatate [Tessalon Perles] 100 mg PO Q8HR PRN #30 capsule 03/26/19 Unknown Rx Ibuprofen [Motrin 800 MG tab] 800 mg PO Q8HR PRN #30 tablet 03/26/19 Unknown Rx predniSONE [Deltasone] 40 mg PO QDAY 5 Days #10 tab 03/26/19 Unknown Rx Allergies Allergy/AdvReac Type Severity Reaction Status Date / Time No Known Allergies Allergy Verified 05/26/17 17:09 ED Review of Systems ROS: Stated complaint: SPITTING UP BLOOD/HAS FLU Other details as noted in HPI Constitutional: chills, fever Eyes: denies: eye pain, eye discharge, vision change ENT: ear pain, throat pain, congestion Respiratory: cough, wheezing. denies: orthopnea, shortness of breath, SOB with exertion Cardiovascular: denies: chest pain, palpitations Endocrine: no symptoms reported Gastrointestinal: denies: abdominal pain, nausea, vomiting, diarrhea Genitourinary: denies: urgency, dysuria Musculoskeletal: denies: back pain, joint swelling, arthralgia Skin: denies: rash, lesions Neurological: denies: headache, weakness, numbness, paresthesias, confusion, abnormal gait, vertigo Psychiatric: denies: anxiety, depression Hematological/Lymphatic: denies: easy bleeding, easy bruising ED Past Medical Hx - Past Medical History Previous Medical History?: Yes Hx Headaches / Migraines: Yes Additional medical history: MIGRAINES - Social History Smoking Status: Current Every Day Smoker Substance Use Type: None - Medications Home Medications: Home Medications Medication Instructions Recorded Confirmed Last Taken Type Ibuprofen [Motrin] 800 mg PO Q8HR PRN #30 tablet 10/24/18 Unknown Rx Prochlorperazine [Compazine] 10 mg PO Q8HR #20 tablet 10/29/18 Unknown Rx methOCARBAMOL [Robaxin] 750 mg PO Q8H PRN #21 tablet 11/28/18 Unknown Rx Benzonatate [Tessalon Perles] 100 mg PO Q8HR PRN #20 capsule 03/20/19 Unknown Rx Clotrimazole [Antifungal] 28 gm TP DAILY #1 cream..g. 03/20/19 Unknown Rx Ibuprofen [Motrin] 600 mg PO Q8H PRN #20 tablet 03/20/19 Unknown Rx Ondansetron [Zofran Odt] 4 mg PO Q8HR PRN #20 tab.rapdis 03/20/19 Unknown Rx Albuterol INH(or & Nicu Only) 2 puff IH QID PRN #8.5 gram 03/26/19 Unknown Rx [ProAir HFA Inhaler] Azithromycin [Zithromax Z-NAOMY] 250 mg PO DAILY #6 tab 03/26/19 Unknown Rx Benzonatate [Tessalon Perles] 100 mg PO Q8HR PRN #30 capsule 03/26/19 Unknown Rx Ibuprofen [Motrin 800 MG tab] 800 mg PO Q8HR PRN #30 tablet 03/26/19 Unknown Rx predniSONE [Deltasone] 40 mg PO QDAY 5 Days #10 tab 03/26/19 Unknown Rx ED Physical Exam - General Limitations: No Limitations General appearance: alert, in no apparent distress - Head Head exam: Present: atraumatic, normocephalic - Eye Eye exam: Present: normal appearance, PERRL, EOMI. Absent: conjunctival injection Pupils: Present: normal accommodation - ENT ENT exam: Present: mucous membranes moist - Expanded ENT Exam Expanded Ear exam: Present: normal external inspection Throat exam: Positive: tonsillar erythema, tonsillomegaly. Negative: tonsillar exudate, R peritonsillar mass, L peritonsillar mass - Neck Neck exam: Present: normal inspection, full ROM, lymphadenopathy. Absent: tenderness, meningismus, thyromegaly - Respiratory Respiratory exam: Present: normal lung sounds bilaterally. Absent: respiratory distress, wheezes, rales, rhonchi, stridor, chest wall tenderness - Cardiovascular Cardiovascular Exam: Present: regular rate, normal rhythm, normal heart sounds. Absent: systolic murmur, diastolic murmur, rubs, gallop - GI/Abdominal GI/Abdominal exam: Present: soft, normal bowel sounds. Absent: distended, tenderness, guarding, rebound, rigid, bruit, hernia - Rectal Rectal exam: Present: deferred - Extremities Exam Extremities exam: Present: normal inspection, full ROM. Absent: tenderness - Back Exam Back exam: Present: normal inspection, full ROM. Absent: tenderness, CVA tenderness (R), CVA tenderness (L) - Neurological Exam Neurological exam: Present: alert, oriented X3, CN II-XII intact - Psychiatric Psychiatric exam: Present: normal affect, normal mood - Skin Skin exam: Present: warm, dry, intact, normal color. Absent: rash ED Course Vital Signs 03/26/19 13:46 Temperature 98.3 F Pulse Rate 80 Respiratory 18 Rate Blood Pressure 127/79 O2 Sat by Pulse 100 Oximetry ED Medical Decision Making - Radiology Data Radiology results: report reviewed, image reviewed Ordering Physician: JESSICA CRUZ NP Date of Service: 03/26/19 Procedure(s): XR chest routine 2V Accession Number(s): [id number] cc: JESSICA CRUZ NP Fluoro Time In Minutes: CHEST 2 VIEWS INDICATION / CLINICAL INFORMATION: cough. COMPARISON: 03/20/2019 FINDINGS: SUPPORT DEVICES: None. HEART / MEDIASTINUM: No significant abnormality. LUNGS / PLEURA: No significant pulmonary or pleural abnormality. No pneumothorax. ADDITIONAL FINDINGS: No significant additional findings. IMPRESSION: No significant abnormality or change from 03/20/2019 Signer Name: Jessica Lopes MD FACR Signed: 03/26/2019 6:18 PM Workstation Name: [employer] [id number] Transcribed By: MS Dictated By: Jessica Lopes MD Electronically Authenticated By: Jessica Lopes MD Signed Date/Time: 03/26/191817 DD/ 16 TD/TT: - Medical Decision Making cxr normal no infiltrates no opacities, plan tx for bronchitis, albuterol , prednisone, azthromycin, ibuprofen, Tessalon Pearls , follow up with pcp in 2-3 days. Critical care attestation.: If time is entered above; I have spent that time in minutes in the direct care of this critically ill patient, excluding procedure time. ED Disposition Clinical Impression: Bronchitis Disposition: DC- TO HOME OR SELFCARE Is pt being admited?: No Does the pt Need Aspirin: No Condition: Stable Instructions: Acute Bronchitis (ED) Prescriptions: predniSONE [Deltasone] 40 mg PO QDAY 5 Days #10 tab Ibuprofen [Motrin 800 MG tab] 800 mg PO Q8HR PRN #30 tablet PRN Reason: pain Albuterol INH(or & Nicu Only) [ProAir HFA Inhaler] 2 puff IH QID PRN #8.5 gram PRN Reason: Shortness Of Breath Benzonatate [Tessalon Perles] 100 mg PO Q8HR PRN #30 capsule PRN Reason: Cough Azithromycin [Zithromax Z-NAOMY] 250 mg PO DAILY #6 tab Referrals: [facility] [Outside] - 3-5 Days Forms: Work/School Release Form(ED) Time of Disposition: 18:59
[2019-03-26 19:53] VITALS: BP 145/87
== END 2019-03-26 19:15 | disposition home or self-care (01) ==
LOC: ED 13:42
DX: J40 Bronchitis, not specified as acute or chronic (principal); G43.909 Migraine, unspecified, not intractable, without status migrainosus; F17.200 Nicotine dependence, unspecified, uncomplicated; Z79.899 Other long term (current) drug therapy
CPT/HCPCS: 71046

== ENCOUNTER 2020-12-07 02:39 | Emergency (ER) | payer OTHER ==
[2020-12-07 03:11] VITALS: BP 140/74
[2020-12-07] MEDS ORDERED: SODIUM CHLORIDE 0.9% 1000 ML 1,000 ML IV ONE (03:36)
[2020-12-07] MEDS ORDERED: MORPHINE 4 MG/1 ML INJ IV ONE (03:36)
[2020-12-07] MEDS ORDERED: FAMOTIDINE 20 MG/2 ML INJ IV ONE (03:36)
[2020-12-07] MEDS ORDERED: ONDANSETRON 4 MG/2 ML INJ IV ONE (03:36)
[2020-12-07 04:24] LABS: Bilirubin,Urine NEG (Negative); Blood,Urine NEG (Negative); Color,Urine Yellow (Yellow); Mucus,Urine FEW /HPF; Protein,Urine <15 mg/dL mg/dL (Negative); WBC,Urine < 1.0 /HPF (0.0-6.0)
--- NOTE | 2020-12-07 04:27 | XRay Report ---
CHEST 2 VIEWS INDICATION / CLINICAL INFORMATION: Cough, fever. COMPARISON: 03/26/2019 FINDINGS: SUPPORT DEVICES: None. HEART / MEDIASTINUM: No significant abnormality. LUNGS / PLEURA: No significant pulmonary or pleural abnormality. No pneumothorax. ADDITIONAL FINDINGS: No significant additional findings. IMPRESSION: 1. No acute findings. Signer Name: Bernardo Lopez MD Signed: 12/07/2020 4:22 AM Workstation Name: [id number]
[2020-12-07 04:51] LABS: Basophils # (Auto) 0.1 K/mm3 (0.0-0.1); Basophils % (Auto) 0.9 % (0.0-1.8); Eosinophils # (Auto) 0.5 K/mm3 (0.0-0.4); Eosinophils % (Auto) 3.7 % (0.0-4.3); Hematocrit 41.7 % (35.5-45.6); Hemoglobin 13.9 gm/dl (11.8-15.2); Lymphocytes # (Auto) 2.8 K/mm3 (1.2-5.4); Lymphocytes % (Auto) 23.4 % (13.4-35.0); Mean Corpuscular HGB Conc 33 % (32-34); Mean Corpuscular Volume 91 fl (84-94); Monocytes # (Auto) 0.5 K/mm3 (0.0-0.8); Monocytes % (Auto) 4.3 % (0.0-7.3); Platelet Count 182 K/mm3 (140-440); Red Blood Count 4.59 M/mm3 (3.65-5.03); Red Cell Distribution Width 14.9 % (13.2-15.2)
[2020-12-07 05:04] LABS: Alanine Aminotransferase 16 units/L (7-56); Albumin 3.3 g/dL (3.9-5); BUN/Creatinine Ratio 11; Blood Urea Nitrogen 12 mg/dL (9-20); Calcium 8.5 mg/dL (8.4-10.2); Hemolysis Index 60
--- NOTE | 2020-12-07 05:39 | Emergency Department Report ---
<SHANONCARMENMaryamLEE ANN - Last Filed: 12/07/20 06:55> ED Abdominal Pain HPI - General Chief Complaint: Headache Stated Complaint: DIARRHEA/MIGRAINE Source: patient Mode of arrival: Ambulatory Limitations: No Limitations - History of Present Illness Initial Comments: Patient is a 40-year-old -Swazi male with a history of migraine headaches who presents to the ED with complaint of acute onset persistent severe diffuse low abdominal pain, worse in suprapubic and left lower quadrant with nausea and vomiting and diarrhea, diffuse body aches and pains, subjective fever and chills, lack of appetite, persistent dry cough and headache for the last 5 days, worse in the last 2 days. Patient states that he feared that the symptoms may be due to Covid-19 viral infection and decided come to the ED for evaluation. Patient denies chest pain, dizziness, shortness of breath, change in vision, syncope, testicular pain, dysuria, urinary frequency and urgency, sore throat, nasal and sinus congestion and hematemesis. MD Complaint: abdominal pain, other (Nausea, vomiting, diarrhea and headache, diffuse body aches and pains and dry cough) -: Sudden, days(s) (5) Location: LLQ, suprapubic Radiation: LLQ, suprapubic Migration to: no migration Severity: severe Severity scale (0 -10): 9 Quality: cramping, aching, sharp Consistency: constant Improves With: nothing Worsens With: vomiting Associated Symptoms: denies other symptoms, nausea, vomiting, diarrhea, a norexia. denies: chills, constipation, dysuria, hematemesis, hematochezia, melena, hematuria, syncope, other Treatments Prior to Arrival: NSAIDs - Related Data Previous Rx's Medication Instructions Recorded Last Taken Type Ibuprofen [Motrin] 800 mg PO Q8HR PRN #30 tablet 10/24/18 Unknown Rx Prochlorperazine [Compazine] 10 mg PO Q8HR #20 tablet 10/29/18 Unknown Rx methOCARBAMOL [Robaxin] 750 mg PO Q8H PRN #21 tablet 11/28/18 Unknown Rx Benzonatate [Tessalon Perles] 100 mg PO Q8HR PRN #20 capsule 03/20/19 Unknown Rx Clotrimazole [Antifungal] 28 gm TP DAILY #1 cream..g. 03/20/19 Unknown Rx Ibuprofen [Motrin] 600 mg PO Q8H PRN #20 tablet 03/20/19 Unknown Rx Ondansetron [Zofran Odt] 4 mg PO Q8HR PRN #20 tab.rapdis 03/20/19 Unknown Rx Albuterol Mdi (or & Nicu Only) 2 puff IH QID PRN #8.5 gram 03/26/19 Unknown Rx [ProAir HFA Inhaler] Azithromycin [Zithromax Z-NAOMY] 250 mg PO DAILY #6 tab 03/26/19 Unknown Rx Benzonatate [Tessalon Perles] 100 mg PO Q8HR PRN #30 capsule 03/26/19 Unknown Rx Ibuprofen [Motrin 800 MG tab] 800 mg PO Q8HR PRN #30 tablet 03/26/19 Unknown Rx predniSONE [Deltasone] 40 mg PO QDAY 5 Days #10 tab 03/26/19 Unknown Rx Allergies Allergy/AdvReac Type Severity Reaction Status Date / Time No Known Allergies Allergy Verified 12/07/20 03:17 ED Review of Systems Constitutional: chills, fever, malaise, weakness Eyes: denies: eye pain, eye discharge, vision change ENT: denies: ear pain, throat pain Respiratory: cough. denies: shortness of breath, wheezing Cardiovascular: denies: chest pain, palpitations Endocrine: no symptoms reported Gastrointestinal: abdominal pain, nausea, vomiting, diarrhea Genitourinary: denies: urgency, dysuria Musculoskeletal: back pain, arthralgia, myalgia. denies: joint swelling Skin: denies: rash, lesions Neurological: headache. denies: weakness, paresthesias Psychiatric: denies: anxiety, depression Hematological/Lymphatic: denies: easy bleeding, easy bruising ED Past Medical Hx - Past Medical History Hx Headaches / Migraines: Yes Additional medical history: MIGRAINES - Surgical History Past Surgical History?: No - Social History Smoking Status: Current Every Day Smoker Substance Use Type: None - Medications Home Medications: Home Medications Medication Instructions Recorded Confirmed Last Taken Type Ibuprofen [Motrin] 800 mg PO Q8HR PRN #30 tablet 10/24/18 Unknown Rx Prochlorperazine [Compazine] 10 mg PO Q8HR #20 tablet 10/29/18 Unknown Rx methOCARBAMOL [Robaxin] 750 mg PO Q8H PRN #21 tablet 11/28/18 Unknown Rx Benzonatate [Tessalon Perles] 100 mg PO Q8HR PRN #20 capsule 03/20/19 Unknown Rx Clotrimazole [Antifungal] 28 gm TP DAILY #1 cream..g. 03/20/19 Unknown Rx Ibuprofen [Motrin] 600 mg PO Q8H PRN #20 tablet 03/20/19 Unknown Rx Ondansetron [Zofran Odt] 4 mg PO Q8HR PRN #20 tab.rapdis 03/20/19 Unknown Rx Albuterol Mdi (or & Nicu Only) 2 puff IH QID PRN #8.5 gram 03/26/19 Unknown Rx [ProAir HFA Inhaler] Azithromycin [Zithromax Z-NAOMY] 250 mg PO DAILY #6 tab 03/26/19 Unknown Rx Benzonatate [Tessalon Perles] 100 mg PO Q8HR PRN #30 capsule 03/26/19 Unknown Rx Ibuprofen [Motrin 800 MG tab] 800 mg PO Q8HR PRN #30 tablet 03/26/19 Unknown Rx predniSONE [Deltasone] 40 mg PO QDAY 5 Days #10 tab 03/26/19 Unknown Rx ED Physical Exam - General Limitations: No Limitations General appearance: alert, in no apparent distress - Head Head exam: Present: atraumatic, normocephalic, normal inspection - Eye Eye exam: Present: normal appearance, PERRL, EOMI Pupils: Present: normal accommodation - ENT ENT exam: Present: normal exam, normal orophraynx, mucous membranes moist, TM's normal bilaterally, normal external ear exam - Neck Neck exam: Present: normal inspection, full ROM - Respiratory Respiratory exam: Present: normal lung sounds bilaterally. Absent: respiratory distress, wheezes, rales, rhonchi, chest wall tenderness, accessory muscle use, decreased breath sounds, prolonged expiratory - Cardiovascular Cardiovascular Exam: Present: regular rate, normal rhythm, normal heart sounds. Absent: systolic murmur, diastolic murmur, rubs, gallop - GI/Abdominal GI/Abdominal exam: Present: soft, tenderness (Palpable diffuse lower abdominal tenderness, worse in the left lower quadrant), normal bowel sounds. Absent: guarding, rebound, hyperactive bowel sounds, hypoactive bowel sounds, organomegaly - Extremities Exam Extremities exam: Present: normal inspection, full ROM, normal capillary refill - Back Exam Back exam: Present: normal inspection, full ROM. Absent: tenderness, CVA tenderness (R), CVA tenderness (L), muscle spasm, paraspinal tenderness, vertebral tenderness - Neurological Exam Neurological exam: Present: alert, oriented X3, CN II-XII intact, normal gait, reflexes normal - Psychiatric Psychiatric exam: Present: normal affect, normal mood - Skin Skin exam: Present: warm, dry, intact, normal color. Absent: rash ED Medical Decision Making - Lab Data Result diagrams: 12/07/20 04:12 12/07/20 04:12 - Radiology Data [facility] [address] [place] [address] XRay Report Signed Patient: SOULEYMANE SY MR#: [id number] : 1980 Acct:[id number] Age/Sex: 40 / M ADM Date: 12/07/20 Loc: ED Attending Dr: Ordering Physician: ORLIN JEONG Date of Service: 12/07/20 Procedure(s): XR chest routine 2V Accession Number(s): [id number] cc: ORLIN JEONG Fluoro Time In Minutes: CHEST 2 VIEWS INDICATION / CLINICAL INFORMATION: Cough, fever. COMPARISON: 03/26/2019 FINDINGS: SUPPORT DEVICES: None. HEART / MEDIASTINUM: No significant abnormality. LUNGS / PLEURA: No significant pulmonary or pleural abnormality. No pneumothorax. ADDITIONAL FINDINGS: No significant additional findings. IMPRESSION: 1. No acute findings. Signer Name: Bernardo Lopez MD Signed: 12/07/2020 4:22 AM Workstation Name: [id number] Transcribed By: TL Dictated By: Bernardo Lopez MD Electronically Authenticated By: Bernardo Lopez MD Signed Date/Time: 12/07/20421 DD/ 1 TD/TT: Print Cancel - Medical Decision Making This is a 40-year-old -Swazi male with a history of migraine headaches who presents to the ED with complaint of acute onset persistent severe diffuse low abdominal pain, worse in suprapubic and left lower quadrant with nausea and vomiting and diarrhea, diffuse body aches and pains, subjective fever and chills, lack of appetite, persistent dry cough and headache for the last 5 days, worse in the last 2 days. Patient states that he feared that the symptoms may be due to Covid-19 viral infection and decided come to the ED for evaluation. In the ED, patient is alert and oriented x3 and is not in any distress. Patient is hemodynamically stable. Patient was treated for pain in the ED and also given antiemetics and normal saline 1 L IV bolus x1. Chest x-ray showed no acute cardiopulmonary abnormalities or pneumonitis. Lab test results were reviewed and showed acute leukocytosis of 12,200. The rest of the lab test r esults are nonactionable. The patient care was transferred to Ms Vaughan Karrie PEDERSEN at shift change at 0700 hours. She shall review Abdomen pelvis CT scan report and disposition the patient accordingly. - Differential Diagnosis Diverticulitis; colitis; UTI; kidney stone; appendicitis; COVID-19 ED Disposition Clinical Impression: Suspected COVID-19 virus infection Disposition: HOME / SELF CARE / HOMELESS Is pt being admited?: No Does the pt Need Aspirin: No Condition: Stable Instructions: COVID-19 Frequently Asked Questions, COVID-19: How to Protect Yourself and Others - CDC, Prevent the Spread of COVID-19 if You Are Sick - [facility] Additional Instructions: X-rays are negative labs are stable. CT scan shows no acute abnormalities. You need to be tested for Covid. Your symptoms appear most consistent with a nonspecific viral syndrome. However, given this current pandemic, COVID-19 is in the differential of possibilities. I do recommend outpatient Covid 19 testing. In the meantime, isolate/quarantine yourself and stay away from anyone who is elderly, immunoc ompromised or chronically ill. You can use ibuprofen every 6-8 hours and Tylenol every 4-8 hours, using the dosing on the back of the bottle, as needed for any fever or body aches. Return to the emergency department with any worsening of your symptoms, development of chest pain or shortness of breath, or with any acute distress. Referrals: [facility] [Provider Group] - 3-5 Days Time of Disposition: 05:40 Print Language: TUVALUAN <HALI ELDER - Last Filed: 12/07/20 07:31> ED Review of Systems ROS: Stated complaint: DIARRHEA/MIGRAINE Other details as noted in HPI ED Course Vital Signs 12/07/20 12/07/20 03:09 04:35 Temperature 98.8 F Pulse Rate 82 Respiratory 19 18 Rate Blood Pressure 140/74 O2 Sat by Pulse 100 Oximetry ED Medical Decision Making - Lab Data Result diagrams: 12/07/20 04:12 12/07/20 04:12 - Radiology Data Radiology results: report reviewed Other Patient ID My Comment(s) Study Comments [facility] [address] [place] [address] Cat Scan Report Signed Patient: SOULEYMANE SY MR#: [id number] : 1980 Acct:[id number] Age/Sex: 40 / M ADM Date: 12/07/20 Loc: ED Attending Dr: Ordering Physician: ORLIN JEONG Date of Service: 12/07/20 Procedure(s): CT abdomen pelvis w con Accession Number(s): [id number] cc: ORLIN JEONG CT ABDOMEN AND PELVIS WITH CONTRAST INDICATION: LLQ abdominal pain. TECHNIQUE: Axial CT images were obtained through the abdomen and pelvis after 100 cc [address] contrast. All CT scans at this location are performed using CT dose reduction for ALARA by means of automated exposure control. COMPARISON: None available. FINDINGS: LOWER CHEST: No significant abnormality. LIVER: No significant abnormality. GALLBLADDER: No significant abnormality. BILE DUCTS: No significant abnormality. PANCREAS: No significant abnormality. SPLEEN: No significant abnormality. ADRENALS: No significant abnormality. RIGHT KIDNEY and URETER: No significant abnormality. LEFT KIDNEY and URETER: No significant abnormality. STOMACH and SMALL BOWEL: No significant abnormality. COLON: No significant abnormality. APPENDIX: No significant abnormality. PERITONEUM: No free fluid. No free air. No fluid collection. LYMPH NODES: No significant adenopathy. AORTA and ARTERIES: No significant abnormality. IVC and VEINS: No significant abnormality. URINARY BLADDER: No significant abnormality. REPRODUCTIVE ORGANS: No significant abnormality. ADDITIONAL FINDINGS: None. SKELETAL SYSTEM: No significant abnormality. IMPRESSION: 1. No significant abnormality. Signer Name: Bernardo Lopez MD Signed: 12/07/2020 6:57 AM Workstation Name: [id number] Transcribed By: TL Dictated By: Bernardo Lopez MD Electronically Authenticated By: Bernardo Lopez MD Signed Date/Time: 12/07/20656 DD/ 4 TD/TT: Critical care attestation.: If time is entered above; I have spent that time in minutes in the direct care of this critically ill patient, excluding procedure time. ED Disposition Is pt being admited?: No Does the pt Need Aspirin: No
--- NOTE | 2020-12-07 07:02 | Cat Scan Report ---
CT ABDOMEN AND PELVIS WITH CONTRAST INDICATION: LLQ abdominal pain. TECHNIQUE: Axial CT images were obtained through the abdomen and pelvis after 100 cc IV contrast. All CT scans at this location are performed using CT dose reduction for ALARA by means of automated exposure contr ol. COMPARISON: None available. FINDINGS: LOWER CHEST: No significant abnormality. LIVER: No significant abnormality. GALLBLADDER: No significant abnormality. BILE DUCTS: No significant abnormality. PANCREAS: No significant abnormality. SPLEEN: No significant abnormality. ADRENALS: No significant abnormality. RIGHT KIDNEY and URETER: No significant abnormality. LEFT KIDNEY and URETER: No significant abnormality. STOMACH and SMALL BOWEL: No significant abnormality. COLON: No significant abnormality. APPENDIX: No significant abnormality. PERITONEUM: No free fluid. No free air. No fluid collection. LYMPH NODES: No significant adenopathy. AORTA and ARTERIES: No significant abnormality. IVC and VEINS: No significant abnormality. URINARY BLADDER: No significant abnormality. REPRODUCTIVE ORGANS: No significant abnormality. ADDITIONAL FINDINGS: None. SKELETAL SYSTEM: No significant abnormality. IMPRESSION: 1. No significant abnormality. Signer Name: Bernardo Lopez MD Signed: 12/07/2020 6:57 AM Workstation Name: [id number]
== END 2020-12-07 07:52 | disposition home or self-care (01) ==
LOC: ED 02:39
DX: G43.909 Migraine, unspecified, not intractable, without status migrainosus (principal); Z20.822 Contact with and (suspected) exposure to COVID-19; R10.32 Left lower quadrant pain; F17.200 Nicotine dependence, unspecified, uncomplicated; Z79.899 Other long term (current) drug therapy
CPT/HCPCS: 36415; 71046; 74177; 80053; 81001; 83690; 85025; 96361; 96374; 96375; 99284; J2270; J2405; J7030; Q9967

== ENCOUNTER 2020-12-13 22:16 | Emergency (ER) | payer OTHER ==
--- NOTE | 2020-12-13 23:29 | Emergency Department Report ---
ED General Adult HPI - General Chief complaint: Chest Pain Stated complaint: FLU LIKE SYMPTOMS Time Seen by Provider: 12/13/20 23:19 Source: patient Mode of arrival: Ambulatory Limitations: No Limitations - History of Present Illness Initial comments: 40-year-old male patient with history of tobacco use presents to the emergency department with complaints of productive cough for 2 weeks. Patient states he has been using nasal spray with limited relief. Patient has tested negative for COVID-19 since onset of his symptoms. Patient's and child are exhibiting similar symptoms. No recent travel. No current steroid antibiotic use. Denies fever, chills, chest pain, shortness of breath, wheezing, vomiting, diarrhea. Denies all other complaints at this time. - Related Data Previous Rx's Medication Instructions Recorded Last Taken Type Ibuprofen [Motrin] 800 mg PO Q8HR PRN #30 tablet 10/24/18 Unknown Rx Prochlorperazine [Compazine] 10 mg PO Q8HR #20 tablet 10/29/18 Unknown Rx methOCARBAMOL [Robaxin] 750 mg PO Q8H PRN #21 tablet 11/28/18 Unknown Rx Benzonatate [Tessalon Perles] 100 mg PO Q8HR PRN #20 capsule 03/20/19 Unknown Rx Clotrimazole [Antifungal] 28 gm TP DAILY #1 cream..g. 03/20/19 Unknown Rx Ibuprofen [Motrin] 600 mg PO Q8H PRN #20 tablet 03/20/19 Unknown Rx Ondansetron [Zofran Odt] 4 mg PO Q8HR PRN #20 tab.rapdis 03/20/19 Unknown Rx Albuterol Mdi (or & Nicu Only) 2 puff IH QID PRN #8.5 gram 03/26/19 Unknown Rx [ProAir HFA Inhaler] Azithromycin [Zithromax Z-NAOMY] 250 mg PO DAILY #6 tab 03/26/19 Unknown Rx Benzonatate [Tessalon Perles] 100 mg PO Q8HR PRN #30 capsule 03/26/19 Unknown Rx Ibuprofen [Motrin 800 MG tab] 800 mg PO Q8HR PRN #30 tablet 03/26/19 Unknown Rx predniSONE [Deltasone] 40 mg PO QDAY 5 Days #10 tab 03/26/19 Unknown Rx Azithromycin [Zithromax] 250 mg PO DAILY 5 Days #6 tablet 12/14/20 Unknown Rx Brompheniramine/Pseudoephed/Dm 10 ml PO Q4H PRN #1 bottle 12/14/20 Unknown Rx [Bromfed Dm Cough Syrup] predniSONE [Deltasone] 20 mg PO QDAY 5 Days #7 tab 12/14/20 Unknown Rx Allergies Allergy/AdvReac Type Severity Reaction Status Date / Time No Known Allergies Allergy Verified 12/07/20 03:17 ED Review of Systems ROS: Stated complaint: FLU LIKE SYMPTOMS Other details as noted in HPI Other: GENERAL: Negative for fever. CARDIOVASCULAR: Negative for chest pain. PULMONARY: Positive for cough. GASTROINTESTINAL: Negative for abdominal pain. MUSCULOSKELETAL: Negative for joint pain. NEUROLOGICAL: Negative for headache. INTEGUMENTARY: Negative for rash. ED Past Medical Hx - Past Medical History Previous Medical History?: Yes Hx Headaches / Migraines: Yes Additional medical history: MIGRAINES - Surgical History Past Surgical History?: No - Social History Smoking Status: Current Every Day Smoker Substance Use Type: None - Medications Home Medications: Home Medications Medication Instructions Recorded Confirmed Last Taken Type Ibuprofen [Motrin] 800 mg PO Q8HR PRN #30 tablet 10/24/18 Unknown Rx Prochlorperazine [Compazine] 10 mg PO Q8HR #20 tablet 10/29/18 Unknown Rx methOCARBAMOL [Robaxin] 750 mg PO Q8H PRN #21 tablet 11/28/18 Unknown Rx Benzonatate [Tessalon Perles] 100 mg PO Q8HR PRN #20 capsule 03/20/19 Unknown Rx Clotrimazole [Antifungal] 28 gm TP DAILY #1 cream..g. 03/20/19 Unknown Rx Ibuprofen [Motrin] 600 mg PO Q8H PRN #20 tablet 03/20/19 Unknown Rx Ondansetron [Zofran Odt] 4 mg PO Q8HR PRN #20 tab.rapdis 03/20/19 Unknown Rx Albuterol Mdi (or & Nicu Only) 2 puff IH QID PRN #8.5 gram 03/26/19 Unknown Rx [ProAir HFA Inhaler] Azithromycin [Zithromax Z-NAOMY] 250 mg PO DAILY #6 tab 03/26/19 Unknown Rx Benzonatate [Tessalon Perles] 100 mg PO Q8HR PRN #30 capsule 03/26/19 Unknown R x Ibuprofen [Motrin 800 MG tab] 800 mg PO Q8HR PRN #30 tablet 03/26/19 Unknown Rx predniSONE [Deltasone] 40 mg PO QDAY 5 Days #10 tab 03/26/19 Unknown Rx Azithromycin [Zithromax] 250 mg PO DAILY 5 Days #6 tablet 12/14/20 Unknown Rx Brompheniramine/Pseudoephed/Dm 10 ml PO Q4H PRN #1 bottle 12/14/20 Unknown Rx [Bromfed Dm Cough Syrup] predniSONE [Deltasone] 20 mg PO QDAY 5 Days #7 tab 12/14/20 Unknown Rx ED Physical Exam - General Limitations: No Limitations - Other Other exam information: General: Awake and alert. No acute distress. Head: Atraumatic, normocephalic. Eyes: EOMI. Pupils are equal and round. Normal sclera and conjunctiva. ENT: Oral mucosa is moist. Normal pharyngeal exam. Neck: Supple. No lymphadenopathy. Pulmonary: No respiratory distress. Clear to auscultation bilaterally. Cardiac: Regular rate and rhythm. Pulses are palpable and equal bilaterally. No lower extremity cyanosis or edema. Skin: Warm and dry. No rashes. Abdomen: Soft, non-tender, non-protuberant. No guarding, rigidity, or rebound. Bowel sounds are normal. No organomegaly or masses noted. Back: Normal alignment. No CVA tenderness. Extremities: Symmetrical. Full range of motion intact. Neurological: Alert and oriented, appropriately interactive, no focal deficits. Psych: Cooperative. Appropriate mood and affect. Speech is evenly metered. Thoughts are logically construed. ED Course Vital Signs 12/13/20 12/13/20 22:37 23:46 Temperature 98.3 F Pulse Rate 92 H Respiratory 16 Rate Blood Pressure 145/85 O2 Sat by Pulse 97 Oximetry ED Medical Decision Making - Medical Decision Making Differential diagnosis including but not limited to: pneumonia, influenza, pertussis, emphysema, viral upper respiratory infection On reevaluation, patient remains stable. No hypoxia, no respiratory distress. Chest x-ray is negative. Patient meets criteria for empiric antibiotics due to prolonged symptom duration > 14 weeks. Suspect patient may also have underlying emphysema as a result of long-term tobacco use. Patient will be discharged home with prescription for macrolide antibiotic, steroids, and appropriate symptomatic treatment. Emphasized the importance of smoking cessation and close outpatient follow-up. Patient expressed understanding and is agreeable to plan of care. Disease transmission precautions discussed. Strict return prec autions provided. Repeat exam is unremarkable and benign. History, exam, diagnostic testing, and current condition do not suggest worrisome pathology to warrant further testing, continued ED treatment, admission, or surgical evaluation at this point. Given the low probability of a significant medical illness, it would be more likely to result in harm than benefit to perform further testing at this stage. Discussed findings, presumptive diagnosis, need for follow-up and specific signs/symptoms that should prompt immediate return to the emergency department. Instructions were explained in detail to the patient in addition to giving written discharge information. Patient expressed understanding and was given the opportunity to ask questions, all of which were satisfactorily answered prior to discharge home. Critical care attestation.: If time is entered above; I have spent that time in minutes in the direct care of this critically ill patient, excluding procedure time. ED Disposition Clinical Impression: History of tobacco abuse Upper respiratory infection Qualifiers: URI type: unspecified URI Qualified Code(s): J06.9 - Acute upper respiratory infection, unspecified Disposition: HOME / SELF CARE / HOMELESS Is pt being admited?: No Does the pt Need Aspirin: No Condition: Stable Instructions: Upper Respiratory Infection, Adult Additional Instructions: Take Azithromycin with food as directed until complete. Take Prednisone with food as directed. Take Bromfed as needed for cough/congestion. Honey is an excellent natural cough suppressant. Exposure to warm humidified air may help relieve congestion. Rest. Drink plenty of fluids. Wash hands frequently to prevent disease transmission. Do not share food or drinks with others. Please quit smoking. Follow-up with primary care provider this week. Call Tuesday to schedule an appointment. See referral information below. Return to the emergency department immediately for new or worsening symptoms. Prescriptions: Brompheniramine/Pseudoephed/Dm [Bromfed Dm Cough Syrup] 10 ml PO Q4H PRN #1 bottle PRN Reason: Congestion predniSONE [Deltasone] 20 mg PO QDAY 5 Days #7 tab Azithromycin [Zithromax] 250 mg PO DAILY 5 Days #6 tablet Referrals: YOVANY FRIEDMAN MD [Staff Physician] - 3-5 Days [facility] [Provider Group] - 3-5 Days Forms: Work/School Release Form(ED) Time of Disposition: 00:22
--- NOTE | 2020-12-13 23:55 | XRay Report ---
CHEST 2 VIEWS INDICATION / CLINICAL INFORMATION: cough x2 weeks, neg covid test. COMPARISON: 12/07/2020 FINDINGS: SUPPORT DEVICES: None. HEART / MEDIASTINUM: No significant abnormality. LUNGS / PLEURA: No significant pulmonary or pleural abnormality. No pneumothorax. ADDITIONAL FINDINGS: No significant additional findings. IMPRESSION: 1. No acute findings. Signer Name: Arturo Cuadra DO Signed: 12/13/2020 11:50 PM Workstation Name: [id number]
[2020-12-14 00:37] VITALS: BP 129/74
== END 2020-12-14 00:41 | disposition home or self-care (01) ==
LOC: ED 22:16
DX: J06.9 Acute upper respiratory infection, unspecified (principal); G43.909 Migraine, unspecified, not intractable, without status migrainosus; F17.200 Nicotine dependence, unspecified, uncomplicated; Z79.899 Other long term (current) drug therapy
CPT/HCPCS: 71046; 99283